=== PATIENT | female | born 1990 | race Caucasian/White ===

== ENCOUNTER 2022-01-29 09:24 | Outpatient (CLI) | payer MEDICAID | END 2022-01-29 09:25 | disposition home or self-care (01) | LOC: LAB.S 09:24 | PROVIDERS: ATTEND Naturopath | DX: L70.9 Acne, unspecified (principal); R53.83 Other fatigue; N94.3 Premenstrual tension syndrome; R68.82 Decreased libido | CPT/HCPCS: 36415; 82670 ==